=== PATIENT | male | born 1995 | race Caucasian/White ===

== ENCOUNTER 2017-03-15 21:47 | Emergency (ER) | payer OTHER ==
[~2017-03-15] VITALS: Ht 188 cm; Wt 95.2 kg
[2017-03-16 00:55] VITALS: BP 138/75
== END 2017-03-16 00:55 | disposition home or self-care (01) ==
LOC: ED 21:47
DX: N50.811 Right testicular pain (principal)
CPT/HCPCS: Q0092

== ENCOUNTER 2020-04-25 13:04 | Emergency (ER) | payer OTHER ==
[~2020-04-25] VITALS: Ht 190.5 cm; Wt 91.6 kg
[2020-04-25 15:03] VITALS: BP 134/79; Ht 190.5 cm; Wt 91.6 kg
== END 2020-04-25 18:10 | disposition home or self-care (01) ==
LOC: ED 13:04
DX: R51.9 Headache, unspecified (principal); H53.9 Unspecified visual disturbance

== ENCOUNTER 2020-04-25 19:41 | Emergency (ER) | payer OTHER ==
[~2020-04-25] VITALS: Ht 190.5 cm; Wt 90.7 kg
[2020-04-25 19:50] VITALS: BP 141/92; Ht 190.5 cm; Wt 90.7 kg
== END 2020-04-25 20:49 | disposition home or self-care (01) ==
LOC: ED 19:41
DX: F41.9 Anxiety disorder, unspecified (principal); R07.89 Other chest pain

== ENCOUNTER → 2020-05-07 | Outpatient (CLI) | payer OTHER ==
[2020-05-06 17:04] LABS: PLATELET COUNT 216 x10^3mcL (152-348)
[2020-05-06 17:46] LABS: ALBUMIN 4.3 g/dL (3.4-5.0); ALKALINE PHOSPHATASE 50 U/L (46-116); ALT/SGPT 25 U/L (16-63); AST/SGOT 15 U/L (15-37); BILIRUBIN TOTAL 0.9 mg/dL (0.20-1.00); CARBON DIOXIDE 29.9 mmol/L (21-32); CHLORIDE SERUM 104 mmol/L (98-107); CREATININE SERUM 0.9 mg/dL (0.7-1.3); GFR1 > 60 mL/min; GLUCOSE SERUM 99 mg/dL (74-106); POTASSIUM SERUM 4.4 mmol/L (3.5-5.1); SODIUM SERUM 139 mmol/L (136-145); TOTAL PROTEIN, SERUM 7.5 g/dL (6.4-8.2)
[2020-05-06 23:49] LABS: rbc morphology (normal/abnorm) NORMAL (NORMAL)
== END | disposition home or self-care (01) ==
LOC: US 13:49
PROVIDERS: ATTEND Internal Medicine Gastroenterology
PROC: BW40ZZZ Ultrasonography of Abdomen (ICD-10-PCS; principal; 2020-05-07)
DX: R10.13 Epigastric pain (principal); R11.0 Nausea; R19.7 Diarrhea, unspecified
CPT/HCPCS: 87338; U0003